=== PATIENT | female | born 1950 | race Caucasian/White ===

== ENCOUNTER → 2019-10-05 11:09 | Outpatient (CLI) | payer MEDICARE, BC, SELFPAY ==
--- NOTE | ~2019-10-05 | MM_ITS ---
EXAMINATION: MM screening [facility] BI [facility] HISTORY: Screening mammogram TECHNIQUE: Craniocaudal and mediolateral oblique 3-D tomosynthesis images were obtained and synthetic 2-D images were generated. CAD analysis was submitted and interpreted. COMPARISON: 09/08/2018, 07/25/2017, 06/11/2016 BREAST PARENCHYMAL COMPOSITION: The breasts are almost entirely fatty. FINDINGS: There is no evidence of suspicious mass, calcification, or architectural distortion to sugg est malignancy in either breast. There has been no suspicious interval change. IMPRESSION: 1. No mammographic evidence of malignancy. 2. Recommend routine screening mammography in one year. BI-RADS Category 1: Negative Reviewed, dictated and finalized at location A.
== END ==
PROVIDERS: PCP Internal Medicine; Visit Provider Internal Medicine
DX: Z12.31 Encounter for screening mammogram for malignant neoplasm of breast (principal)
CPT/HCPCS: 77063; 77067

== ENCOUNTER 2019-11-25 12:34 | Outpatient (CLI) | payer MEDICARE, BC, SELFPAY ==
--- NOTE | 2019-11-25 13:11 | ECHO_ITS ---
Patient Info Name: Melinda Goodwin Age: 69 years : 1950 Gender: Female Ht: 67 in Wt: 204 lbs BSA: 2.12 m2 HR: 120 bpm BP: 158 / 109 mmHg Heart Rhythm: Atrial Fibrillation Exam Date: 11/25/2019 1:21 PM Exam Location: [facility] Patient Status: Outpatient Admit Date: 11/25/2019 Staff Ordering Physician: Tyrell Bernstein MD Caddymaster: Veronika Low RDCS Attending Provider: Tyrell Bernstein MD Referring Physician: Amandeep RIVERA; Exam Type: CA echo doppler color flow Study Info Indications - AFIB Summary 1. Left ventricular chamber dimension is mildly enlarged. 2. Left ventricular systolic function is severely reduced, estimated at 30-35%. 3. There is mildly increased left ventricular wall thickness. 4. The left ventricular diastolic function is indeterminate. 5. The anterior wall, and anteroseptal wall are hypokinetic. 6. The inferior wall, inferoseptal wall, anterolateral wall, inferolateral wall, and apical cap are not scored. 7. Left atrial chamber dimension is severely enlarged. 8. Right atrial chamber dimension is moderately enlarged. 9. There is mild aortic valve regurgitation. 10. There is moderate aortic valve calcification. 11. There is mild to moderate mitral valve regurgitation. 12. The mitral valve has calcified annulus and posterior prolapse. 13. There is mild tricuspid valve regurgitation. 14. Moderate pulmonary hypertension, estimated pulmonary arterial systolic pressure is 45 mmHg. 15. There is mild pulmonic regurgitation. Left Ventricle Left ventricular chamber dimension is mildly enlarged. Left ventricular systolic function is severely reduced, estimated at 30-35%. There is mildly increased left ventricular wall thickness. The left ventricular diastolic function is indeterminate. The anterior wall, and anteroseptal wall are hypokinetic. The inferior wall, inferoseptal wall, anterolateral wall, inferolateral wall, and apical cap are not scored. Right Ventricle Right ventricular chamber dimension is normal. Right ventricular systolic function is normal. Left Atria Left atrial chamber dimension is severely enlarged. Right Atria Right atrial chamber dimension is moderately enlarged. Chiari network noted. Atrial Septum Intact interatrial septum visualized by color flow imaging. Aortic Valve The aortic valve is trileaflet. There is no aortic valve stenosis. There is mild aortic valve regurgitation. There is moderate aortic valve calcification. Pulmonic Valve The pulmonic valve is normal. There is no pulmonic valve stenosis. There is mild pulmonic regurgitation. Mitral Valve The mitral valve has calcified annulus and posterior prolapse. There is no mitral valve stenosis. There is mild to moderate mitral valve regurgitation. Tricuspid Valve The tricuspid valve leaflets are normal. There is no significant tricuspid valve stenosis. There is mild tricuspid valve regurgitation. Moderate pulmonary hypertension, estimated pulmonary arterial systolic pressure is 45 mmHg. Pericardium/Pleural The pericardium appears normal. There is trivial pericardial effusion. Inferior Vena Cava Dilated inferior vena cava with <50% collapse upon inspiration consistent with elevated right atrial pressure, 15 mmHg. Aorta The aortic root size at the sinus of Valsalva is normal. The prox ascending aorta size is normal. Left Ventricular Outflow Tract
== END 2019-11-25 12:35 | disposition home or self-care (01) ==
PROVIDERS: PCP Internal Medicine; Visit Provider Internal Medicine
DX: I48.91 Unspecified atrial fibrillation (principal); I35.1 Nonrheumatic aortic (valve) insufficiency; I34.0 Nonrheumatic mitral (valve) insufficiency; I36.1 Nonrheumatic tricuspid (valve) insufficiency; I27.20 Pulmonary hypertension, unspecified; I37.1 Nonrheumatic pulmonary valve insufficiency
CPT/HCPCS: 93306

== ENCOUNTER 2019-12-04 00:30 | Outpatient (CLI) | payer MEDICARE, BC, SELFPAY ==
[2019-12-04 18:00] LABS: SARS-CoV-2 RNA PCR Negative
== END 2019-12-04 00:31 | disposition home or self-care (01) ==
LOC: ANHCOVIDDT 00:30
PROVIDERS: PCP Internal Medicine; Visit Provider Internal Medicine Cardiovascular Disease
DX: Z01.812 Encounter for preprocedural laboratory examination (principal); Z20.828 Contact with and (suspected) exposure to other viral communicable diseases
CPT/HCPCS: 87635; C9803; U0003

== ENCOUNTER 2019-12-07 05:07 | Day surgery (SDC) | payer MEDICARE, BC, SELFPAY ==
[2019-12-02 13:25] VITALS: BMI 31.8
[2019-12-07] VITALS (9 sets, daily range): BP systolic 123–146; BP diastolic 53–99; PULSE 53–96; RESP 10–21; TEMP 36.7; O2SAT 97–100
--- NOTE | 2019-12-07 | ECG_ITS ---
Measurements Intervals [place] Rate: 52 P: 93 ID: [id number] QRS: 16 QRSD: 98 T: 29 QT: 457 QTc: 427 Interpretive Statements SINUS BRADYCARDIA BORDERLINE ECG Electronically Signed On 12-07-2019 13:20:13 CDT by Jimmy Flanagan D.O.
--- NOTE | 2019-12-07 06:11 | ECG_ITS ---
Measurements Intervals [place] Rate: 99 P: [place]: 0 QRS: 15 QRSD: 90 T: 30 QT: 331 QTc: 426 Interpretive Statements ATRIAL FIBRILLATION VOLTAGE CRITERIA FOR LVH BORDERLINE ST ABNORMALITY- ANTEROLATERAL LEADS BASELINE ARTIFACT- I, II, III, AVR, AVL ABNORMAL ECG Electronically Signed On 12-07-2019 10:31:02 CDT by Jimmy Flanagan D.O.
[2019-12-07 10:25] LABS: Hematocrit 42.7 % (37.0-47.0); Hemoglobin 13.7 g/dL (12.0-15.0); Mean Corpuscular HGB Conc 32.1 g/dl (32-36); Mean Corpuscular Hemoglobin 28.9 pg (26-34); Mean Corpuscular Volume 90.1 fl (80-100); Mean Platelet Volume 10.1 fl (7.4-10.4); Platelet Count Result 248 k/mm3 (150-375); Red Blood Count 4.74 M/mm3 (4.2-5.4); Red Cell Distribution Width 13.9 % (11.5-14.5); White Blood Count 7.4 K/mm3 (4.5-10.0)
[2019-12-07 10:41] LABS: Blood Urea Nitrogen 20 mg/dL (7-17); Calcium 9.4 mg/dL (8.4-10.2); Carbon Dioxide 27 mmol/L (22-30); Chloride 103 mmol/L (98-107); Estimated CRCL calculation 59 ml/min; Estimated Glomerular Filt Rate > 60; Glucose 125 mg/dL (65-105); Magnesium 2.1 mg/dL (1.6-2.3); Potassium 4.2 mmol/L (3.4-5.0); Sodium 137 mmol/L (137-145)
--- NOTE | 2019-12-07 11:19 | WPDHPUPDATE1 ---
History and Physical Update Update Date/Time: 12/07/19 11:19 History and Physical has been reviewed, including an updated exam of the patient. There are NO changes in the patient's condition. EKG shows AFib rate 99. Risks, benefits, and alternatives have been discussed and questions answered. Patient agrees to proceed with procedure.
--- NOTE | 2019-12-07 11:19 | WPDMODSED ---
Moderate Sedation Note-Pt Data Patient Data Diagnosis: Atrial fibrillation, symptomatic, with RVR cardiomyopathy Present Complaint: Atrial fibrillation RVR associated with new cardiomyopathy, EF 30-35%. The patient was seen by Dr. Avalos as a new consult last week and Xarelto and metoprolol were started. Verapamil is being weaned off. He recommended AJAY guided cardioversion and further evaluation follow-up in the office. Procedure to be performed/Plan: AJAY and cardioversion with conscious sedation Allergies Allergy/AdvReac Type Severity Reaction Status Date / Time hydrochlorothiazide Allergy Mild Rash Verified 12/02/19 13:22 Sulfa (Sulfonamide Allergy Mild Vertigo Verified 11/11/16 09:00 Antibiotics) No Known Allergies Allergy Unknown Unknown Unverified 03/06/18 07:56 Home Medications Medication Instructions Recorded Confirmed Type Lipitor 10 mg tablet 10 mg PO DAILY #90 tablet NS 05/27/19 12/02/19 Rx levothyroxine 150 mcg tablet 150 mcg PO DAILY #90 tablet 05/27/19 12/02/19 Rx lisinopril 10 mg tablet 10 mg PO DAILY #90 tablet 05/27/19 12/02/19 Rx verapamil 240 mg 24 hr 240 mg PO DAILY #90 cap 05/27/19 12/02/19 Rx capsule,extended release calcium carbonate 500 mg PO DAILY 12/02/19 12/02/19 History geriatric erymonwy-lpiw-scvh 1 tablet PO DAILY 12/02/19 12/02/19 History magnesium oxide 200 mg PO DAILY 12/02/19 12/02/19 History metoprolol tartrate 50 mg PO BID 12/02/19 12/02/19 History rivaroxaban [Xarelto] 20 mg PO DAILY 12/02/19 12/02/19 History vitamin E 400 unit PO WEEKLY 12/02/19 12/02/19 History Sedation/Anesthesia: No previous sedation/anesthesia problems (including family history). [facility] Social History Social History Smoking status: Never smoker Alcohol intake: current Gender identity (if verbalized by the patient): Female Mod Sed Physical Exam Physical Exam Pre Procedural Exam: Normal: Appearance, Eyes, Ears, Nose, Neck, Throat, Airway, Lungs, Heart Size, Heart Rate, Neuro Exam, Abdomen, Extremities and Skin and Variation: Heart Rhythm (irreg) Hours since solid foods: 12 Hours since liquid intake: 12 Internal Medicine - PN: Obj Da Vital Signs Vital Signs: Vital Signs - 24 hr 12/07/19 10:11 Temperature 98.0 F Pulse Rate 96 Respiratory Rate 20 Blood Pressure 141/99 H Pulse Oximetry 98 Labs CBC & Chem 7: 12/07/19 10:06 12/07/19 10:06 Labs: Laboratory Results - last 24 hr 12/07/19 12/07/19 10:06 10:06 WBC 7.4 RBC 4.74 Hgb 13.7 Hct 42.7 MCV 90.1 MCH 28.9 MCHC 32.1 RDW 13.9 Plt Count 248 MPV 10.1 Sodium 137 Potassium 4.2 Chloride 103 Carbon Dioxide 27 BUN 20 H Creatinine 0.90 Estim Creat Clear Calc 59 Estimated GFR > 60 Glucose 125 H Calcium 9.4 Magnesium 2.1 ASA Classification/Sedation ASA Classification/Sedation Risks: Risks, benefits and alternatives explained and patient/family accepted plan for sedation. Risks include breathing problems, blood pressure problems, stroke, other arrhythmias etc.. Patient re-evaluated immediately prior to sedation.
--- NOTE | 2019-12-07 12:01 | WPDTECDV ---
AJAY with Cardioversion Date of procedure: 12/07/19 Procedure Type: Conscious sedation Transesophageal echo Cardioversion Diagnosis: Patient with persistent atrial fibrillation, RVR, and the new cardiomyopathy complaining of DAVID. Indications: Persistent AFib, RVR, new cardiomyopathy with mild CHF, ejection fraction 30% Description of Procedure: Conscious sedation: Assessment: The patient has no history of anesthesia problems. The patient's oropharynx is clear. The patient was deemed to be a good candidate for conscious sedation. The patient had continuous hemodynamic and oximetric monitoring during the procedure. Start time: 1135 Completion time: 1154 Total conscious sedation time: 19 minutes Medications Used: Versed 3 mg IV push, fentanyl 125 mcg IV push Trained observer: Audrey Nieto RN Outcome: The patient tolerated the procedure well with no complications. Procedure: After informed consent the patient had Hurricaine spray the hypopharynx and viscous lidocaine gargle. The patient had conscious sedation as described above. The transesophageal echo probe was introduced in the esophagus without difficulty. Imaging was obtained in multiplane views. Agitated saline was injected to evaluate for intracardiac shunting. The patient tolerated the procedure well with no complications. Findings: The left atrium was severely enlarged. There is no thrombus present in the left atrium or left atrial appendage, though some spontaneous contrast was noted in the left atrium. The atrial septum appeared intact. Mitral valve appeared normal, with no stenosis or prolapse. The left ventricle had had normal size and thickness with severe global hypokinesis.. The ejection fraction is estimated to be: 25%. The aortic root and valve were normal. The ascending aorta and aortic arch were normal. The descending thoracic aorta was tortuous and had moderate aortic atherosclerosis. The right atrium, tricuspid valve, right ventricle, pulmonic valve and pulmonic artery were all normal. There is no pericardial effusion. When agitated saline was injected intravenously there was no evidence of intracardiac shunting during normal respiration. Colorflow Doppler Findings: Mild mitral and tricuspid regurgitation. . Cardioversion: After informed consent and the above conscious sedation, the patient underwent elective electrical synchronized cardioversion with 150 joules of biphasic energy and converted to normal sinus rhythm heart rate 56. There were no complications. Sedation: As above Findings: Severe left atrial enlargement Spontaneous contrast in left atrium but no thrombus or contrast in the left atrial appendage Severe global hypokinesis, EF 25% Mild mitral and tricuspid regurgitation Moderate atherosclerosis of the descending thoracic aorta No evidence of intracardiac shunting Conclusion: Successful AJAY guided cardioversion to sinus bradycardia, heart rate 56 Recommendation: Will discontinue verapamil completely, and possibly increase lisinopril to 20 mg daily (after I confer with Dr. Avalos). Continue Xarelto. Pt desires to change metoprolol 50 mg b.i.d. to metoprolol succinate 100 mg daily. EKg in 1 week and follow up with Dr. Avalos as scheduled.
== END 2019-12-07 13:20 | disposition home or self-care (01) ==
PROVIDERS: PCP Internal Medicine; Visit Provider Internal Medicine Cardiovascular Disease
PROC: (CPT 93312; principal; 2019-12-07 11:00)
PROC: 5A2204Z Restoration of Cardiac Rhythm, Single (ICD-10-PCS; 2019-12-07 11:00)
DX: I48.19 Other persistent atrial fibrillation (principal); I42.9 Cardiomyopathy, unspecified; I50.9 Heart failure, unspecified; Z79.01 Long term (current) use of anticoagulants
CPT/HCPCS: 36415; 80048; 83735; 85027; 92960; 93005; 93312; 93320; 93325; J2250; J3010

== ENCOUNTER 2019-12-14 13:12 | Inpatient (IN) | payer MEDICARE, BC, SELFPAY ==
[2019-12-14] VITALS (10 sets, daily range): BP systolic 104–108; BP diastolic 70–87; PULSE 94–151; RESP 18; TEMP 36.3–36.5; O2SAT 98–99; BMI 20.2; BMI 30.5
--- NOTE | 2019-12-14 13:41 | ADMGEN ---
This patient, Melinda Goodwin, was admitted to IMU Room 212-. Patient/family oriented to hospital policies and general routines including ID bracelet, bed and alarms, visiting hours, pain management, procedures, bathroom and other care routines, personal items, smoking policy, room service/diet, and visiting hours. Valuables list has been completed. Information on how to activate the Rapid Response Team has been discussed. Patient/Family are encouraged to report perceived risks to care and to ask questions if they do not understand what they are told or what they should do.
--- NOTE | 2019-12-14 13:44 | PM.IMHP ---
H&P: HPI History of Present Illness Chief complaint: atrial fibrillation RVR <Shelly Long, CLIMATE CHANGE RISK ASSESSOR - Last Filed: 12/14/19 15:53> Narrative: Melinda Goodwin is a 69 year old female with a new diagnosis of atrial fibrillation and left ventricular dysfunction that was first seen in the office by Dr Avalos on November 30, 2019. She had monitored her heart rates with her Fitbit and noticed elevation as well as an irregular heartbeat on her blood pressure cuff. This was discussed with her primary care physician Dr Bernstein and she was again found to be in atrial fibrillation. Echocardiogram was obtained on 11/25/2019 with a significant findings of: Left ventricular chamber dimension is mildly enlarged. Left ventricular systolic function is severely reduced, estimated at 30-35%. Severe left atrial enlargement. [id number] MR with posterior prolapse. RVSP 45 mm Hg and mild aortic regurgitation. There was also wall motion abnormality noted. She was started on metoprolol tartrate 50 mg q.12 hours for rate control and Xarelto 20 mg daily for anticoagulation. She began weaning verapamil and AJAY/ cardioversion was recommended. This was performed by Dr Valenzuela on 12/07/2019. Findings of the transesophageal echocardiogram were: Severe left atrial enlargement. Spontaneous contrast in left atrium but no thrombus or contrast in the left atrial appendage. Severe global hypokinesis, EF 25%. Mild mitral and tricuspid regurgitation. Moderate atherosclerosis of the descending thoracic aorta. No evidence of intracardiac shunting. She underwent successful cardioversion to sinus bradycardia at a rate of 52 beats per minute. Verapamil was completely discontinued. Her Metoprolol tartrate was changed to Metoprolol succinate 100 mg daily. She has been monitoring her heart rate and rhythm with Kardia noting regular rhythm as well as rate. In the afternoon of 12/13/2019 she was preparing a snack for her grandchild at approximately 4:00 p.m. when she noted a fleeting fluttering sensation. He took a walk with the baby and returned approximately 5:00 p.m. when she felt again some irregularity in her chest. She checked her Kardia which noted a rapid and irregular heart rhythm. She took an additional Metoprolol tartrate 50 mg with no further rate control. She was scheduled to see us in the office today for her 12 lead EKG which revealed atrial fibrillation with rapid ventricular response sotalol loading was recommended and she agreed. <Shelly Long CLIMATE CHANGE RISK ASSESSOR - Last Filed: 12/14/19 15:53> Review of Systems Constitutional: Constitutional: Denies chills, Denies fatigue, Denies lethargy, Denies weakness, Denies weight gain and Denies weight loss <Shelly Long, CLIMATE CHANGE RISK ASSESSOR - Last Filed: 12/14/19 15:53> Eyes: Eyes: Denies blurry vision, Denies diplopia and Denies itchy eyes <Shelly Long, CLIMATE CHANGE RISK ASSESSOR - Last Filed: 12/14/19 15:53> ENT: Denies bleeding gums, Denies dental pain, Denies epistaxis and Denies nasal congestion <Shelly Long, CLIMATE CHANGE RISK ASSESSOR - Last Filed: 12/14/19 15:53> Comments: Frequently needs to clear throat. <Shelly Long APRN - Last Filed: 12/14/19 15:53> Cardiovascular: Cardiovascular: Denies chest pain, Denies chest pain with activity, Denies syncope, Reports rapid heart rate (Noted fluttering sensation evening 12/13/2019), Reports irregular heart rhythm, Reports leg edema (Resolved when she started aspirin), Denies lightheadedness, Denies dyspnea on exertion, Denies orthopnea and Denies paroxysmal nocturnal dyspnea <Shelly Long APRN - Last Filed: 12/14/19 15:53> Respiratory: Respiratory: Denies cough, Denies dyspnea, Denies dyspnea on exertion and Denies wheezing <Shelly Long, CLIMATE CHANGE RISK ASSESSOR - Last Filed: 12/14/19 15:53> Gastrointestinal: Gastrointestinal: Denies abdominal pain, Denies belching, Denies bloating, Denies change in bowel habits, Denies constipation, Denies dysphagia, Reports heartburn (With spicy foods), Denies diarrhea, Denies nausea and D
[2019-12-14] MEDS: SOTALOL HCL 80 MG TABLET PO ×2 (14:20→23:08)
[2019-12-14 14:34] LABS: Hematocrit 45.6 % (37.0-47.0); Hemoglobin 14.8 g/dL (12.0-15.0); Mean Corpuscular HGB Conc 32.5 g/dl (32-36); Mean Corpuscular Hemoglobin 28.8 pg (26-34); Mean Corpuscular Volume 88.9 fl (80-100); Mean Platelet Volume 10.2 fl (7.4-10.4); Platelet Count Result 263 k/mm3 (150-375); Red Blood Count 5.13 M/mm3 (4.2-5.4); Red Cell Distribution Width 13.9 % (11.5-14.5)
[2019-12-14 14:47] LABS: Alanine Aminotransferase 19 U/L (4-35); Albumin Level 4.4 g/dL (3.5-5.1); Alkaline Phosphatase 65 U/L (38-126); Aspartate Amino Transferase 25 U/L (14-36); Bilirubin,Total 0.7 mg/dL (0.2-1.3); Blood Urea Nitrogen 25 mg/dL (7-17); Calcium 9.5 mg/dL (8.4-10.2); Carbon Dioxide 24 mmol/L (22-30); Chloride 106 mmol/L (98-107); Estimated CRCL calculation 42 ml/min; Estimated Glomerular Filt Rate 55; Glucose 127 mg/dL (65-105); Magnesium 2.1 mg/dL (1.6-2.3); Potassium 4.1 mmol/L (3.4-5.0); Sodium 137 mmol/L (137-145)
--- NOTE | 2019-12-14 16:20 | ECG_ITS ---
Measurements Intervals [place] Rate: 132 P: [place]: 0 QRS: 5 QRSD: 93 T: -2 QT: 309 QTc: 459 Interpretive Statements ATRIAL FIBRILLATION WITH RAPID VENTRICULAR RESPONSE VOLTAGE CRITERIA FOR LVH NONSPECIFIC T-WAVE ABNORMALITY- INFERIOR LEADS ABNORMAL ECG Electronically Signed On 12-14-2019 16:47:47 CDT by Jimmy Flanagan D.O.
[2019-12-14] MEDS: RIVAROXABAN 20 MG TABLET PO (17:46)
[2019-12-14 21:04] LABS: Glucose Point of Care 104 (65-105)
[2019-12-15] VITALS (16 sets, daily range): BP systolic 107–139; BP diastolic 65–95; PULSE 83–143; RESP 14–20; TEMP 35.9–36.7; O2SAT 97–99
--- NOTE | 2019-12-15 01:00 | ECG_ITS ---
Measurements Intervals [place] Rate: 120 P: SD: 0 QRS: 34 QRSD: 91 T: 30 QT: 360 QTc: 511 Interpretive Statements ATRIAL FIBRILLATION WITH RAPID VENTRICULAR RESPONSE VOLTAGE CRITERIA FOR LVH ABNORMAL ECG Electronically Signed On 12-15-2019 6:54:44 CDT by Jimmy Flanagan D.O.
[2019-12-15 05:59] LABS: Blood Urea Nitrogen 22 mg/dL (7-17); Calcium 9.1 mg/dL (8.4-10.2); Carbon Dioxide 29 mmol/L (22-30); Chloride 105 mmol/L (98-107); Estimated CRCL calculation 57 ml/min; Estimated Glomerular Filt Rate > 60; Glucose 108 mg/dL (65-105); Potassium 4.4 mmol/L (3.4-5.0); Sodium 137 mmol/L (137-145)
[2019-12-15] MEDS: LEVOTHYROXINE SODIUM 150 MCG TABLET PO (06:17)
[2019-12-15] MEDS: ATORVASTATIN 10 MG TABLET PO (08:33)
[2019-12-15] MEDS: SOTALOL HCL 80 MG TABLET PO (08:33)
--- NOTE | 2019-12-15 09:56 | PM.PNCARD ---
Progress Note: A&P Additional Plan Recurrent AFib with RVR. Patient being loaded with sotalol. Has had dose 3. This morning. Anticipate attempting DC cardioversion tomorrow after 5 doses are on board unless she chemically converts with the sotalol. Will keep her NPO this evening after midnight in anticipation of this Anticipate discharge tomorrow following cardioversion Subjective Date/time seen: Date of service: 12/15/19 09:56 Interval history: Follow-up visit in 69-year-old lady with history of atrial fibrillation admitted with symptomatic recurrence for sotalol treatment Exam Const: General: comfortable and no acute distress HENMT: Mouth: Yes moist mucous membranes Eyes: Sclera: sclerae normal Pupils: Equal, round and reactive pupils present Neck: Neck: supple and no JVD Thyroid: thyroid normal Resp: Effort & Inspection: normal respiratory effort Auscultation: clear to auscultation bilaterally Cardio: Rate: regular rate and tachycardic Rhythm: abnormal rhythm irregularly irregular GI: Auscultation: normal bowel sounds Skin: General skin exam: normal color Neuro: Cognition (Neuro): normal cognition Extrem: General: normal to inspection Objective Data Vital Signs Vital Signs: Vital Signs - 24 hr 12/14/19 14:00 12/14/19 14:03 12/14/19 14:20 Temperature 36.5 C Pulse Rate 143 H 151 H 140 H Respiratory Rate 18 Blood Pressure 106/82 Pulse Oximetry 98 12/14/19 16:00 12/14/19 16:31 12/14/19 18:00 Temperature 36.3 C L Pulse Rate 127 H 145 H 139 H Respiratory Rate 18 Blood Pressure 104/87 Pulse Oximetry 98 12/14/19 19:33 12/14/19 20:00 12/14/19 22:00 Temperature 36.4 C Pulse Rate 94 131 H 108 H Respiratory Rate 18 Blood Pressure 108/70 Pulse Oximetry 99 12/14/19 23:08 12/15/19 00:00 12/15/19 02:00 Temperature 36.7 C Pulse Rate 131 H 138 H 103 H Respiratory Rate 18 Blood Pressure 111/80 Pulse Oximetry 97 12/15/19 04:00 12/15/19 06:00 12/15/19 08:00 Temperature 36.4 C 36.3 C L Pulse Rate 125 H 114 H 129 H Respiratory Rate 20 14 Blood Pressure 107/65 119/85 Pulse Oximetry 97 99 12/15/19 08:33 Temperature Pulse Rate 141 H Respiratory Rate Blood Pressure Pulse Oximetry Intake/Output Intake/Output: Intake & Output 12/12/19 12/13/19 12/14/19 12/15/19 23:59 23:59 23:59 23:59 Intake Total 440 850 Output Total 300 1050 Balance 140 -200 Meds/Results Medications: Active Medications Generic Name Dose Route Start Last Admin Trade Name Isabel PRN Reason Stop Dose Admin Atorvastatin Calcium 10 mg 12/15/19 09:00 12/15/19 08:33 Lipitor PO 10 mg DAILY YE Administration Calcium Carbonate 1,000 mg 12/15/19 09:00 12/15/19 08:35 Oscal 500 Mg PO Not Given DAILY [facility] Levothyroxine Sodium 150 mcg 12/15/19 06:30 12/15/19 06:17 Synthroid PO 150 mcg DAILY@0630 YE Administration Magnesium Oxide 200 mg 12/15/19 09:00 12/15/19 08:35 Mag-Ox PO Not Given DAILY [facility] Multivitamins/Calcium 1 tablet 12/15/19 09:00 12/15/19 08:35 Therapeutic Multivitamins/Minerals PO 01/14/20 09:01 Not Given DAILY [facility] Rivaroxaban 20 mg 12/14/19 18:00 12/14/19 17:46 Xarelto PO 20 mg QPM YE Administration Sotalol HCl 80 mg 12/14/19 13:35 12/15/19 08:33 Betapace PO 80 mg Q12HR YE Administration Labs Labs: Laboratory Results - last 24 hr 12/14/19 12/14/19 12/14/19 14:23 14:23 21:00 WBC 7.0 RBC 5.13 Hgb 14.8 Hct 45.6 MCV 88.9 MCH 28.8 MCHC 32.5 RDW 13.9 Plt Count 263 MPV 10.2 Sodium 137 Potassium 4.1 Chloride 106 Carbon Dioxide 24 BUN 25 H Creatinine 1.00 Estim Creat Clear Calc 42 Estimated GFR 55 L Glucose 127 H POC Capillary Glucose 104 Calcium 9.5 Magnesium 2.1 Total Bilirubin 0.7 AST 25 ALT 19 Alkaline Phosphatase 65 Total Protein 8.0 Albumin 4.4
--- NOTE | 2019-12-15 10:45 | ECG_ITS ---
Measurements Intervals [place] Rate: 116 P: [place]: 0 QRS: 39 QRSD: 104 T: 58 QT: 361 QTc: 502 Interpretive Statements ATRIAL FIBRILLATION WITH RAPID VENTRICULAR RESPONSE VENTRICULAR PREMATURE COMPLEX VOLTAGE CRITERIA FOR LVH BORDERLINE ST-T WAVE ABNORMALITY- ANTEROLAT/LAT LEADS ABNORMAL ECG Electronically Signed On 12-15-2019 11:16:38 CDT by Jimmy Flanagan D.O.
[2019-12-15] MEDS: RIVAROXABAN 20 MG TABLET PO (17:54)
[2019-12-15] MEDS: SOTALOL HCL 40 MG TABLET PO (20:06)
--- NOTE | 2019-12-15 22:00 | ECG_ITS ---
Measurements Intervals [place] Rate: 134 P: [place]: 0 QRS: 23 QRSD: 90 T: 31 QT: 320 QTc: 479 Interpretive Statements ATRIAL FIBRILLATION WITH RAPID VENTRICULAR RESPONSE VOLTAGE CRITERIA FOR LVH BORDERLINE ST ABNORMALITY- ANTEROLATERAL LEADS ABNORMAL ECG Electronically Signed On 12-16-2019 7:04:21 CDT by Jimmy Flanagan D.O.
[2019-12-16] VITALS (21 sets, daily range): BP systolic 130–166; BP diastolic 54–127; PULSE 52–146; RESP 15–20; TEMP 36.2–36.5; O2SAT 96–100
[2019-12-16 04:56] LABS: Blood Urea Nitrogen 23 mg/dL (7-17); Carbon Dioxide 27 mmol/L (22-30); Chloride 107 mmol/L (98-107); Estimated CRCL calculation 64 ml/min; Estimated Glomerular Filt Rate > 60; Glucose 108 mg/dL (65-105); Potassium 4.1 mmol/L (3.4-5.0); Sodium 137 mmol/L (137-145)
[2019-12-16] MEDS: LEVOTHYROXINE SODIUM 150 MCG TABLET PO (06:08)
--- NOTE | 2019-12-16 07:00 | ECG_ITS ---
Measurements Intervals [place] Rate: 131 P: [place]: 0 QRS: 36 QRSD: 91 T: 30 QT: 319 QTc: 471 Interpretive Statements ATRIAL FIBRILLATION WITH RAPID VENTRICULAR RESPONSE VOLTAGE CRITERIA FOR LVH BORDERLINE ST ABNORMALITY- LATERAL LEADS ABNORMAL ECG Electronically Signed On 12-16-2019 8:29:37 CDT by Jimmy Flanagan D.O.
[2019-12-16] MEDS: SOTALOL HCL 40 MG TABLET PO (07:51)
--- NOTE | 2019-12-16 10:14 | WPDMODSED ---
Moderate Sedation Note-Pt Data Patient Data Diagnosis: Atrial fibrillation Present Complaint: Atrial fibrillation Procedure to be performed/Plan: Moderate sedation, electrical cardioversion Allergies Allergy/AdvReac Type Severity Reaction Status Date / Time hydrochlorothiazide Allergy Mild Rash Verified 12/02/19 13:22 Home Medications Medication Instructions Recorded Confirmed Type Lipitor 10 mg tablet 10 mg PO DAILY #90 tablet NS 05/27/19 12/14/19 Rx levothyroxine 150 mcg tablet 150 mcg PO DAILY #90 tablet 05/27/19 12/14/19 Rx Xarelto 20 mg PO QPM 12/02/19 12/14/19 History calcium carbonate 1,000 mg PO DAILY 12/02/19 12/14/19 History geriatric [id number] 1 tablet PO DAILY 12/02/19 12/14/19 History magnesium oxide 200 mg PO DAILY 12/02/19 12/14/19 History vitamin E 400 unit PO WEEKLY 12/02/19 12/14/19 History metoprolol succinate 100 mg PO DAILY #30 tablet 12/07/19 12/14/19 Rx lisinopril 10 mg PO BID 12/14/19 12/14/19 History Current Medications: Active Medications Atorvastatin Calcium (Lipitor) 10 mg PO DAILY [facility] Last Admin: 12/15/19 08:33 Dose: 10 mg Documented by: Calcium Carbonate (Oscal 500 Mg) 1,000 mg PO DAILY [facility] Last Admin: 12/15/19 08:35 Dose: Not Given Documented by: Sodium Chloride (Normal Saline Iv) 250 mls @ 50 mls/hr IV CONT .Q5H ONE Stop: 12/16/19 12:59 Levothyroxine Sodium (Synthroid) 150 mcg PO DAILY@0630 [facility] Last Admin: 12/16/19 06:08 Dose: 150 mcg Documented by: Magnesium Oxide (Mag-Ox) 200 mg PO DAILY [facility] Last Admin: 12/15/19 08:35 Dose: Not Given Documented by: Multivitamins/Calcium (Therapeutic Multivitamins/Minerals) 1 tablet PO DAILY [facility] Stop: 01/14/20 09:01 Last Admin: 12/15/19 08:35 Dose: Not Given Documented by: Rivaroxaban (Xarelto) 20 mg PO QPM [facility] Last Admin: 12/15/19 17:54 Dose: 20 mg Documented by: Sotalol HCl (Betapace) 40 mg PO Q12HR [facility] Last Admin: 12/16/19 07:51 Dose: 40 mg Documented by: Sedation/Anesthesia: No previous sedation/anesthesia problems (including family history). 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 Endometrial cancer Hyperlipidemia LDL goal <100 Surgical History Surgical History History of bilateral salpingo-oophorectomy 2014 with total abdominal hysterectomy History of total abdominal hysterectomy 2014 Hx laparoscopic cholecystectomy 1995 Hx of cataract removal with insertion of prosthetic lens 2017 Family History Family History Mother Family history of congestive heart failure, Onset Age: 90 Family history of Parkinson's disease, Onset Age: 90 Family history of type 2 diabetes mellitus, Onset Age: 90 Patient's mother is , Onset Age: 90 Father Patient's father is Social History Social History Smoking status: Never smoker Alcohol intake: former Substance use: never Substance use type: does not use Gender identity (if verbalized by the patient): Female Spiritual care concerns: No Mod Sed Physical Exam Physical Exam Pre Procedural Exam: Normal: Appearance, Eyes, Ears, Nose, Lungs, Neuro Exam, Extremities and Skin and Variation: Heart Rhythm (Irregular irregular) Hours since solid foods: 12 Hours since liquid intake: 12 Internal Medicine - PN: Obj Da Vital Signs Vital Signs: Vital Signs - 24 hr 12/15/19 12:00 12/15/19 14:00 12/15/19 16:00 Temperature 36.6 C 36.3 C L Pulse Rate 123 H 138 H 140 H Respiratory Rate 16 18 Blood Pressure 138/91 H 139/95 H Pulse Oximetry 97 99 12/15/19 18:00 12/15/19 19:54 12/15/19 20:00 Temperature 36.5 C Pulse Rate 140 H 136 H 1
--- NOTE | 2019-12-16 10:29 | WPDCARDVER ---
Cardioversion Cardioversion Date of procedure: 12/16/19 Procedure: 1. Elective electrical cardioversion 2. Moderate sedation Pre-op diagnosis: Atrial fibrillation Post-op diagnosis: same Indications: Atrial fibrillation Description of procedure: After discussing the risks, benefits and alternatives of the procedure the patient agreeable via verbal and written informed consent. Risks discussed included stroke, skin irritation or burn, shocking into a more problematic heart rhythm. 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 The defibrillator pads were placed in the anterior and posterior position. Medications were administered and patient was monitored by Andrés Cullen RN Complications: None Blood loss: None Procedure start time 10:18 a.m. Procedure stop time 10:28 a.m. After adequate sedation 150 joules of biphasic synchronized energy was used and restored sinus rhythm Sedation: A total of 3 mg of Versed and 75 mcg of fentanyl given in divided dosages Findings: As detailed above, successful baptism of sinus rhythm using 150 joules of biphasic synchronized energy. Moderate sedation was utilized successfully. Conclusion: 1. Moderate sedation 2. Successful elective electrical cardioversion using 150 joules biphasic synchronized energy
--- NOTE | 2019-12-16 10:30 | ECG_ITS ---
Measurements Intervals [place] Rate: 68 P: 50 TN: 178 QRS: 13 QRSD: 94 T: 17 QT: 410 QTc: 437 Interpretive Statements SINUS RHYTHM VOLTAGE CRITERIA FOR LVH BORDERLINE ECG Electronically Signed On 12-16-2019 10:46:17 CDT by Jimmy Flanagan D.O.
--- NOTE | 2019-12-16 13:05 | PM.DS ---
DS: Admitting Diagnosis Admitting Diagnosis Admitting Diagnosis: Unspecified atrial fibrillation DS: Discharge Diagnosis Discharge Diagnosis (1) Atrial fibrillation with rapid ventricular response: Code(s): I48.91 - Unspecified atrial fibrillation Status: Acute Assessment and Plan: As per HPI cardioverted 12/07/2019. Remained in normal sinus rhythm until she noted on her Kardia better heart rates were again elevated. Admitted 12/14/2019 for sotalol loading. Metoprolol was stopped and she was started on sotalol 80 mg every 12 hours. QTc lengthened out to 502 ms and the dose was decreased to 40 mg every 12 hours. She remained in atrial fibrillation with an acceptable QTc She underwent cardioversion again on 12/16/2019 restoring normal sinus rhythm. She was discharged home with close follow-up of her EKG as well as office visit. (2) Benign essential hypertension: Code(s): I10 - Essential (primary) hypertension Status: Acute Assessment and Plan: Metoprolol succinate was discontinued when she was started on sotalol. Lisinopril 10 mg daily. Blood pressure will be monitored as an outpatient. (3) Hyperlipidemia LDL goal <100: Code(s): E78.5 - Hyperlipidemia, unspecified Status: Acute Assessment and Plan: LDL 11/30/2019 was 43 Continue atorvastatin 10 mg daily. (4) Hypothyroidism, unspecified: Qualifiers: Hypothyroidism type: acquired Qualified Code(s): E03.9 - Hypothyroidism, unspecified Code(s): E03.9 - Hypothyroidism, unspecified Status: Acute Assessment and Plan: 11/18/2019: TSH 3.66. Free direct T4 1.5. Continue levothyroxine 150 mcg daily . 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 (6) Cardiomyopathy: Code(s): I42.9 - Cardiomyopathy, unspecified Status: Acute Assessment and Plan: Thought to be due to her atrial fibrillation however with wall motion abnormality coronary artery disease cannot be excluded. She is well compensated. When discussed in the office with Dr Avalos atrial fibrillation with rate control and anticoagulation taking care of before ischemic evaluation. (7) DVT prophylaxis: Code(s): Z29.9 - Encounter for prophylactic measures, unspecified Status: Acute Assessment and Plan: Continue Xarelto 20 mg daily without interruption. DS: Summary Hospital Course Reason for hospitalization: Atrial fibrillation with rapid ventricular response for sotalol loading. Hospital Course: Cardioverted successfully on 12/07/2019 but converted back to atrial fibrillation with rapid ventricular response so she was admitted on 12/14/2019 for sotalol loading. She was started on 80 mg every 12 hours however her QTc did lengthen and the dose was decreased to 40 mg q.12 hours. Xarelto was continued for anticoagulation without interruption. She was maintained on lisinopril 10 mg for hypertension. She was again cardioverted on 12/16/2019 successfully restoring normal sinus rhythm. QTc was acceptable. She was discharged home in stable and pain-free condition on 12/16/2019. Status at Discharge Functional status at discharge: independent ambulation Overall status at discharge: patient is back to baseline Time Spent with Patient Time attestation: Total time spent providing and/or coordinating discharge services: 40 minutes. 20 minutes in the room, 10 minutes to do discharge orders including follow-up and 10 minutes to complete discharge summary Time spent: Greater than 30 minutes Specific discharge activities: Long discussion regarding medications including the use of amiod
[2019-12-16] MEDS: lisinopriL 10 MG TABLET PO (13:36)
== END 2019-12-16 14:50 | disposition home or self-care (01) | DRG 310 ==
PROVIDERS: Nurse Practitioner Adult Health; Admitting Provider Internal Medicine Cardiovascular Disease; PCP Internal Medicine; Visit Provider Internal Medicine Cardiovascular Disease
PROC: 5A2204Z Restoration of Cardiac Rhythm, Single (ICD-10-PCS; principal; 2019-12-16 10:00)
DX: I48.91 Unspecified atrial fibrillation (principal); I42.9 Cardiomyopathy, unspecified; I10 Essential (primary) hypertension; E78.5 Hyperlipidemia, unspecified; E03.9 Hypothyroidism, unspecified; Z79.01 Long term (current) use of anticoagulants; Z79.899 Other long term (current) drug therapy; Z85.42 Personal history of malignant neoplasm of other parts of uterus
CPT/HCPCS: 36415; 80048; 80053; 83735; 85027; 92960; 93005; A9270; J2250; J3010; J7040

== ENCOUNTER 2020-02-25 14:19 | Outpatient (RCR) | payer MEDICARE, BC, SELFPAY ==
[2020-02-25 15:04] VITALS: BP 152/70; PULSE 66; RESP 14; TEMP 37.1; O2SAT 98
[2020-02-25 15:16] VITALS: PULSE 65
== END 2020-02-28 11:24 | disposition home or self-care (01) ==
LOC: ANHCPREHAB 14:19
PROVIDERS: PCP Internal Medicine; Visit Provider Internal Medicine Cardiovascular Disease
DX: I50.89 Other heart failure (principal)
CPT/HCPCS: 93798

== ENCOUNTER → 2020-11-20 11:19 | Outpatient (CLI) | payer MEDICARE, BC, SELFPAY ==
--- NOTE | ~2020-11-20 | MM_ITS ---
EXAMINATION: MM screening [facility] BI w lor HISTORY: Screening TECHNIQUE: Craniocaudal and mediolateral oblique 3-D tomosynthesis images were obtained and synthetic 2-D images were generated. CAD analysis was submitted and interpreted. COMPARISON: Comparison to multiple prior studies sequentially, with oldest reviewed study dated 04/06. BREAST PARENCHYMAL COMPOSITION: There are scattered areas of fibroglandular density. FINDINGS: There is no evidence of suspicious mass, calcification, or architectural distortion to sugg est malignancy in either breast. There has been no suspicious interval change. IMPRESSION: 1. No mammographic evidence of malignancy. 2. Recommend routine screening mammography in one year. BI-RADS Category 1: Negative Reviewed, dictated and finalized at location A.
== END ==
PROVIDERS: PCP Internal Medicine; Visit Provider Internal Medicine
DX: Z12.31 Encounter for screening mammogram for malignant neoplasm of breast (principal)
CPT/HCPCS: 77063; 77067

== ENCOUNTER → 2022-01-18 15:32 | Outpatient (CLI) | payer MEDICARE, BC, SELFPAY ==
--- NOTE | ~2022-01-18 | MM_ITS ---
EXAMINATION: MM screening [facility] BI w [facility] HISTORY: Screening TECHNIQUE: Craniocaudal and mediolateral oblique 3-D tomosynthesis images were obtained and synthetic 2-D images were generated. CAD analysis was submitted and interpreted. COMPARISON: Comparison to multiple prior studies sequentially, with oldest reviewed study dated 04/06. BREAST PARENCHYMAL COMPOSITION: There are scattered areas of fibroglandular density. FINDINGS: There is no evidence of suspicious mass, calcification, or architectural distortion to sugg est malignancy in either breast. There has been no suspicious interval change. IMPRESSION: 1. No mammographic evidence of malignancy. 2. Recommend routine screening mammography in one year. BI-RADS Category 1: Negative Reviewed, dictated and finalized at location A.
--- NOTE | ~2022-01-18 | DEXA_ITS ---
Bone Density Report Name: BERNARDO SOTELO Age: 71 Sex: Female Ethnicity: White Date of : 1950 Indication: postmenopausal; screening for osteoporosis; parental hip fracture; height loss; hysterectomy; Referring Provider: ABYB NAIR Study: Bone densitometry was performed. Exam Date: January 18, 2022 Accession number: [id number] Bone Density: Region BMD T-score Z-score Classification AP Spine (L1-L4) 1.099 0.5 2.8 Normal Femoral Neck (Left) 0.664 -1.7 0.3 Osteopenia Total Hip (Left) 0.807 -1.1 0.6 Osteopenia Femoral Neck (Right) 0.666 -1.7 0.3 Osteopenia Total Hip (Right) 0.774 -1.4 0.3 Osteopenia Total Hip Mean 0.791 -1.3 0.5 Osteopenia World Health Organization criteria for BMD impression classify patients as: Normal (T-score at or above -1.0), Osteopenia (T-score between -1.0 and -2.5), or Osteoporosis (T-score at or below -2.5). 10-year Fracture Risk(1): Major Osteoporotic Fracture 17% Hip Fracture 6.9% Reported Risk Factors: [place] (), Neck BMD=0.666, BMI=30.1, parental fracture (1) FRAX(R) Version 3.08. Fracture probability calculated for an untreated patient. Fracture probability may be lower if the patient has received treatment. Previous Exams: Region Exam Age BMD T-score BMD Change BMD Change Date g/cm2 vs Baseline vs Previous AP Spine(L1-L4) 01/18/2022 71 1.099 0.5 0.037 -0.006 09/18/2018 68 1.105 0.5 0.042 0.039 05/21/2016 65 1.066 0.2 0.004 -0.012 04/04/2014 63 1.078 0.3 0.015 0.069 05/03/2009 58 1.009 -0.3 -0.053* -0.053* 11/14/2006 56 1.063 0.1 Total Hip(Left) 01/18/2022 71 0.807 -1.1 -0.119 -0.031* 09/18/2018 68 0.838 -0.8 -0.088 -0.059 05/21/2016 65 0.897 -0.4 -0.029* 0.003 04/04/2014 63 0.895 -0.4 -0.032 -0.033 05/03/2009 58 0.928 -0.1 0.001 0.001 11/14/2006 56 0.927 -0.1 Total Hip(Right) 01/18/2022 71 0.774 -1.4 -0.119 -0.118* 09/18/2018 68 0.892 -0.4 -0.001 0.002 05/21/2016 65 0.890 -0.4 -0.003 -0.014 04/04/2014 63 0.904 -0.3 0.012 -0.001 05/03/2009 58 0.905 -0.3 0.012 0.012 11/14/2006 56 0.893 -0.4 *Denotes significance at 95% confidence level, LSC for AP Spine = 0.022 g/cm2, LSC for Total Hip = 0.027 g/cm2 Clinical Information Provided by Radha
== END ==
PROVIDERS: PCP Family Medicine; Visit Provider Internal Medicine
DX: Z12.31 Encounter for screening mammogram for malignant neoplasm of breast (principal); Z78.0 Asymptomatic menopausal state; M85.852 Other specified disorders of bone density and structure, left thigh; M85.851 Other specified disorders of bone density and structure, right thigh
CPT/HCPCS: 77063; 77067; 77080

== ENCOUNTER → 2023-02-10 15:39 | Outpatient (CLI) | payer MEDICARE, BC, SELFPAY ==
--- NOTE | ~2023-02-10 | MM_ITS ---
EXAMINATION: MM screening [facility] BI w lor HISTORY: Screening mammogram TECHNIQUE: Craniocaudal and mediolateral oblique 3-D tomosynthesis images were obtained and synthetic 2-D images were generated. CAD analysis was submitted and interpreted. COMPARISON: 01/18/2022, 11/20/2020, 10/05/2019 BREAST PARENCHYMAL COMPOSITION: There are scattered areas of fibroglandular density. FINDINGS: No suspicious mass, calcification, or architectural distortion are identified in either tony ast to suggest malignancy. There has been no suspicious interval change. IMPRESSION: 1. No mammographic evidence of malignancy. 2. Recommend routine screening mammography in one year. BI-RADS Category 1: Negative Reviewed, dictated and finalized at location A.
== END ==
PROVIDERS: PCP Family Medicine; Visit Provider Family Medicine
DX: Z12.31 Encounter for screening mammogram for malignant neoplasm of breast (principal)
CPT/HCPCS: 77063; 77067

== ENCOUNTER 2024-04-05 12:19 | Outpatient (CLI) | payer MEDICARE, BC, SELFPAY ==
--- NOTE | ~2024-04-05 | MM_ITS ---
EXAMINATION: MM screening [facility] HISTORY: Screening TECHNIQUE: Craniocaudal and mediolateral oblique 3-D tomosynthesis images were obtained and synthetic 2-D images were generated. CAD analysis was submitted and interpreted. COMPARISON: Comparison to multiple prior studies sequentially, with oldest reviewed study dated 03/2018. BREAST PARENCHYMAL COMPOSITION: Not dense: There are scattered areas of fibroglandular density. FINDINGS: There is no evidence of suspicious mass, calcification, or architectural distortion to sugg est malignancy in either breast. There has been no suspicious interval change. IMPRESSION: 1. No mammographic evidence of malignancy. 2. Recommend routine screening mammography in one year. BI-RADS Category 1: Negative Reviewed, dictated and finalized at location B.
== END 2024-04-05 12:20 | disposition home or self-care (01) ==
PROVIDERS: PCP Family Medicine; Visit Provider Family Medicine
DX: Z12.31 Encounter for screening mammogram for malignant neoplasm of breast (principal)
CPT/HCPCS: 77063; 77067

== ENCOUNTER 2025-04-05 09:36 | Outpatient (CLI) | payer MEDICARE, BC, SELFPAY ==
--- NOTE | ~2025-04-05 | DEXA_ITS ---
Bone Density Report Name: BERNARDO SOTELO Age: 74 Sex: Female Ethnicity: White Date of : 1950 Indication: osteopenia; parental hip fracture; height loss; cancer; hysterectomy; Referring Provider: CAMILLE ALFONSO Study: Bone densitometry was performed. Exam Date: April 05, 2025 Accession number: [id number] Bone Density: Region BMD T-score Z-score Classification AP Spine(L3, L4) 0.956 -1.3 1.3 Osteopenia Femoral Neck (Left) 0.606 -2.2 0.0 Osteopenia Total Hip (Left) 0.696 -2.0 -0.1 Osteopenia Femoral Neck (Right) 0.610 -2.1 0.0 Osteopenia Total Hip (Right) 0.721 -1.8 0.1 Osteopenia Total Hip Mean 0.708 -1.9 0.0 Osteopenia World Health Organization criteria for BMD impression classify patients as: Normal (T-score at or above -1.0), Osteopenia (T-score between -1.0 and -2.5), or Osteoporosis (T-score at or below -2.5). 10-year Fracture Risk(1): Major Osteoporotic Fracture 27% Hip Fracture 17% Reported Risk Factors: [place] (), Neck BMD=0.606, BMI=28.7, parental fracture (1) FRAX(R) Version 3.08. Fracture probability calculated for an untreated patient. Fracture probability may be lower if the patient has received treatment. Previous Exams: -- Region Exam Age BMD T-score BMD Change BMD Change Date g/cm2 vs Baseline vs Previous -- AP Spine (L3-L4) 04/05/2025 74 0.956 -1.3 -14.3%# -18.8%* 01/18/2022 71 1.177 0.7 5.5%# 0.7% 09/18/2018 68 1.168 0.6 4.7%# 3.6%# 05/21/2016 65 1.128 0.2 1.1% -1.9%# 04/04/2014 63 1.149 0.4 3.0%# 10.2%# 05/03/2009 58 1.043 -0.5 -6.5%* -6.5%* 11/14/2006 56 1.116 0.1 Total Hip(Left) 04/05/2025 74 0.696 -2.0 -24.9%# -13.8%* 01/18/2022 71 0.807 -1.1 -12.9%# -3.7%* 09/18/2018 68 0.838 -0.8 -9.5%# -6.6%# 05/21/2016 65 0.897 -0.4 -3.2%* 0.3%# 04/04/2014 63 0.895 -0.4 -3.5%# -3.6%# 05/03/2009 58 0.928 -0.1 0.1% 0.1% 11/14/2006 56 0.927 -0.1 Total Hip(Right) 04/05/2025 74 0.721 -1.8 -19.3%# -6.9%* 01/18/2022 71 0.774 -1.4 -13.3%# -13.2%* 09/18/2018 68 0.892 -0.4 -0.1%# 0.2%# 05/21/2016 65 0.890 -0.4 -0.3% -1.6%# 04/04/2014 63 0.904 -0.3 1.3%# -0.1%# 05/03/2009 58 0.905 -0.3 1.4% 1.4% 11/14/2006 56 0.893 -0.4 -- *Denotes significance at 95% confidence level, LSC for AP Spine = 0.022 g/cm2, LSC for Total Hip = 0.027 g/cm2 Rate of change results reflect vertebral levels common to all scans # Denotes dissimilar scan types or analysis methods Clinical Information Provided by Patient: Parent has had a hip fracture Has used the following medications: Vitamin D, Calcium Has the following medical conditions: Cancer, Hysterectomy Patient maximum height was 69 Menopause Age: 53 No regular weight bearing exercise Drinks caffeinated beverages Onset of menses at age 11 Number of children 2 Impression: The patient has low bone mass, based on the Left Femoral Neck T-score. The patient has an estimated ten-year risk of hip fracture of 17% and an estimated ten-year risk of major fracture of 27%, based on the WHO FRAX algorithm. The patient has risk factors, including: parental hip fracture. The BMD for the AP Spine (L3-L4) decreased, changing by -18.8% since the last DXA exam. The BMD for the Total Hip(Left) decreased, changing by -13.8% since the last DXA exam. The BMD for the Total Hip(Right) decreased, changing by -6.9% since the last DXA exam. Discussion: BONE DENSITY IS LOW AT ONE OR MORE SKELETAL SITES. THE PATIENT'S BMD AND CLINICAL RISK FACTORS CONTRIBUTE TO THIS PATIENT'S HIGH RISK OF FRACTURE. This patient's lowest T-score is low at one or more skeletal sites. It meets the World Health Organization's (WHO) criteria for ?low bone mass? (T-score between -1.0 and -2.5). The patient's 10-year risk of hip fracture and 10 year risk of a major osteoporotic fracture as calculated by FRAX exceeds the threshold where pharmacological therapy is recommended by the National Osteoporosis Foundation (NOF). However, all treatment decisions require clinical judgment and consideration of individual patient factors, including patient preferences, comorbidities, previous drug use, risk factors not captured in the FRAX model (e.g., frailty, falls, vitamin D deficiency, increased bone turnover, interval significant decline in bone density) and possible under or overestimation of fracture risk by FRAX. The patient should follow a healthful lifestyle (good nutrition with adequate calcium and vitamin D, and appropriate weight-bearing exercise). Follow-Up: Consider a repeat BMD and Vertebral Fracture Assessment (VFA) exam in 2 years or sooner if medically necessary, to reassess this patient's status. Reported by: SHERRIE on 04/05/2025 10:22:00 AM. Reviewed, dictated and finalized at location A.
== END 2025-04-05 09:37 | disposition home or self-care (01) ==
LOC: MICIMG 09:37
PROVIDERS: PCP Family Medicine; Visit Provider Family Medicine
DX: M81.0 Age-related osteoporosis without current pathological fracture (principal); M85.89 Other specified disorders of bone density and structure, multiple sites; Z13.820 Encounter for screening for osteoporosis
CPT/HCPCS: 77080